=== PATIENT | female | born 1995 | race Caucasian/White ===

== ENCOUNTER 2019-07-11 00:30 | Emergency (ER) | payer OTHER ==
[~2019-07-11] VITALS: Ht 162.6 cm; Wt 104.3 kg
[~2019-07-11 00:30] MED LIST: ALBUTEROL SULF8.5 GM INH; CIPRO500 MG PO; GUAIFENESIN-CO118 M1 ORAL; IBUPROFEN800 MG ORAL; OVCON-351 EACH PO; SPIRONOLACTONE50 MG ORAL; ZITHROMAX250 MG ORAL
--- NOTE | 2019-07-11 00:53 | Emergency Room Report ---
History of Present Illness General Chief Complaint: Skin Rash/Abscess Source: Patient Present Illness HPI 24-year-old female presents with multiple bug bites to lower extremities foot x1 week patient has been putting hydrogen peroxide on the bites without any relief, patient has not taken any Benadryl, patient denies any fevers chills cough congestion patient presents for evaluation severity is moderate, constant , characterization is itchy. Allergies: Coded Allergies: CEPHALEXIN (Verified Allergy, Unknown, 07/11/19) Patient History Past Medical History: see triage record Last Menstrual Period: 06-16-2019 Now: No Reviewed Nursing Documentation: PMH: Agreed; PSxH: Agreed Nursing Documentation-PMH Hx Asthma: Yes Review of Systems All Other Systems: negative except mentioned in HPI Physical Exam Vital Signs Date Time Temp Pulse Resp B/P (MAP) Pulse Ox O2 Delivery O2 Flow Rate FiO2 07/11/19 00:35 128 22 115/94 (101) 96 General Appearance: well appearing, no apparent distress Head: normocephalic, atraumatic ENT: hearing grossly normal, normal voice Neck: full range of motion, supple Respiratory: no respiratory distress, speaking full sentences Neurologic: alert, normal gait Psychiatric: mood/affect normal Skin: rash - Multiple bug bites leg with punctate lesions, erythema Medical Decision Making Diagnostic Impression: Primary Impression: Insect bite Qualified Codes: W57.XXXA - Bitten or stung by nonvenomous insect and other nonvenomous arthropods, initial encounter ER Course 24-year-old female presents with insect bites to lower extremities. Patient counseled to stop utilizing hydroperoxide it is destroying the skin, anabiotic provided disposition home with return precautions Symptomatic control Last Vital Signs Date Time Temp Pulse Resp B/P (MAP) Pulse Ox O2 Delivery O2 Flow Rate FiO2 07/11/19 00:35 128 22 115/94 (101) 96 Disposition: HOME, SELF-CARE Condition: Stable Scripts Trimethoprim/Sulfamethoxazole 160/800* (BACTRIM DS TABLET*) 1 Each Tablet 1 TAB ORAL Q12H, #20 TAB 0 Refills Prov: Neftali Ramirez MD 07/11/19 Referrals: [facility] Patient Instructions: Insect Bite, [id number] Additional Instructions: The patient was provided with discharge instructions, notified to follow-up with a primary care doctor and or specialist in the next 24-48 hours, and to return to the ED if they have worsening of their symptoms. Please note that this report is being documented using [employer] technology. This can lead to erroneous entry secondary to incorrect interpretation by the dictating instrument. Neftali Ramirez MD Jul 11, 2019 00:53
[2019-07-11 01:00] VITALS: BP 116/69
[2019-07-11] MEDS ORDERED: Bacitracin Oint 15gm Tube TOPIC ONE (01:00)
[2019-07-11] MEDS ORDERED: Hydrocortisone 1% Oint 30gm TOPIC ONE (01:00)
[2019-07-11] MEDS ORDERED: DiphenhydrAMINE & Zinc 28g Cream TOPIC ONE (01:00)
--- NOTE | 2019-07-11 01:00 | NUR ---
ED Nurse Note: pt walked c/o multiple bug bites and itching with pain on marbin lower extremities, pt reports she doesn't know what bit her but she has been having it for past couple of days. noted reddened swollen skin lesions with black scabs in the middle, no drainage at this time, will cont monitor. pt advised to stop scratching the rash.
[2019-07-11] MEDS ORDERED: BACTRIM DS TAB1 EAC1 ORAL (01:12)
[2019-07-11 01:35] VITALS: BP 116/69
--- NOTE | 2019-07-11 01:35 | NUR ---
ED Nurse Note: pt cleared to be d/c per ermd, pt discharge and aftercare instruction provided w/ prescription, pt education done via discussion and handout, pt advised to follow up with pcp or return to ed if changes in condition, vss, ambulatory w/ steady gait, left w/ all belongings. pt accompanied by family.
== END 2019-07-11 01:35 | disposition home or self-care (01) ==
LOC: EMR 00:44
DX: S80.862A Insect bite (nonvenomous), left lower leg, initial encounter (principal); S80.861A Insect bite (nonvenomous), right lower leg, initial encounter; J45.909 Unspecified asthma, uncomplicated; Z88.1 Allergy status to other antibiotic agents; W57.XXXA Bitten or stung by nonvenomous insect and other nonvenomous arthropods, initial encounter; Y92.9 Unspecified place or not applicable
CPT/HCPCS: 81025; Z7502; 99282